=== PATIENT | female | born 1975 | race Caucasian/White ===

== ENCOUNTER 2020-03-05 15:09 | Observation (INO) | payer BC, OTHER ==
[~2020-03-05] VITALS: Ht 157.5 cm; Wt 87.9 kg
--- NOTE | 2020-03-05 15:23 | NUR ---
PATIENT AMBULATORY TO ROOM FROM TRIAGE
[2020-03-05] MEDS ORDERED: SODIUM CHLORIDE FLUSH 10ML SYR IVF ONE (15:30)
[2020-03-05 15:47] LABS: ALANINE AMINOTRANSFERASE 16 U/L (12-78); ALBUMIN 3.7 g/dL (3.4-5.0); ANION GAP 4 mmol/L (5-15); CALCIUM 8.9 mg/dL (8.5-10.1); CHLORIDE 112 mmol/L (98-107)
[2020-03-05] MEDS ORDERED: KETOROLAC 30 MG/1 ML ONE (15:49)
[2020-03-05] MEDS ORDERED: NITROGLYCERIN SINGLE TAB 0.4 MG SL ONE (15:49)
[2020-03-05] MEDS ORDERED: ASPIRIN 81 MG TABLET CHEW ONE (15:50)
[2020-03-05 15:52] LABS: ALKALINE PHOSPHATASE 63 U/L (45-117); BASOPHILS % (AUTO) 1 % (0-1); BILIRUBIN,TOTAL 0.2 mg/dL (0.2-1.0); CREATININE 0.78 mg/dL (0.55-1.02); EOSINOPHILS % (AUTO) 2 % (1-7); LYMPHOCYTES % (AUTO) 25 % (22-44); MEAN CORPUSCULAR HEMOGLOBIN 27.4 pg (27.0-34.8); MEAN PLATELET VOLUME 8.4 fL (7.4-10.4); MONOCYTES % (AUTO) 6 % (2-9); NEUTROPHILS % (AUTO) 66 % (42-75); PLATELET COUNT 339 x10^3/uL (130-400); RED BLOOD COUNT 4.78 x10^6/uL (3.82-5.3); RED CELL DISTRIBUTION WIDTH 14.2 % (9.6-15.2); TOTAL PROTEIN 7.5 g/dL (6.4-8.2); TROPONIN I < 0.015 ng/mL (0.000-0.045)
[2020-03-05] MEDS ORDERED: ASPIRIN 81 MG TABLET CHEW PO ONE (16:00)
[2020-03-05] MEDS ORDERED: NITROGLYCERIN SINGLE TAB 0.4 MG SL PRN (16:00)
[2020-03-05] MEDS ORDERED: KETOROLAC 30 MG/1 ML IVPush ONE (16:00)
--- NOTE | 2020-03-05 16:00 | NUR ---
THIS IS A 44 YO FEMALE COMING IN FOR LEFT SIDED CHEST PAIN RADIATING DOWN LEFT ARM AND INTO LEFT SCAPULA X2 DAYS WITH ASSOCIATED LIGHTHEADEDNESS. DENIES SOB, DENIES N/V. PAIN STARTED OFF INTERMITTENT, BECAME CONSTANT TODAY. 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 PIV PLACED, MEDICATED PER EMAR, TOLERATED WELL. CALL LIGHT IN REACH
[2020-03-05 16:06] LABS: MD NO
--- NOTE | 2020-03-05 16:19 | NUR ---
CALL PLACED TO RADIOLOGY, ONUR IN RADIOLOGY STATES SHE WILL COME TAKE CXR IF NOT ALREADY DONE IT SHOWS IT IS STILL LOGGED AND NOT COMPLETED
--- NOTE | 2020-03-05 17:30 | NUR ---
PATIENT SLEEPING, RESPIRATIONS EVEN AND UNLABORED, VSS, NADN
[2020-03-05] MEDS ORDERED: OMNIPAQUE 350 MG/ML, 75ML BOTTLE ONE (18:27)
--- NOTE | 2020-03-05 18:30 | NUR ---
PATIENT BACK FROM CTA
--- NOTE | 2020-03-05 19:22 | NUR ---
PATIENT RESTING ON GURNEY, RESPIRATIONS EVEN AND UNLABORED. VSS, NADN, CALL LIGHT IN REACH. PATIENT TO BE ADMITTED
[2020-03-05] MEDS ORDERED: ACETAMINOPHEN 325 MG TABLET PO PRN (19:30)
[2020-03-05] MEDS ORDERED: HYDROcodone/APAP 5/325 TABLET PO PRN (19:30)
[2020-03-05] MEDS ORDERED: ZOLPIDEM 5MG TABLET PO PRN (19:30)
[2020-03-05] MEDS ORDERED: DOCUSATE 100 MG CAPSULE PO PRN (19:30)
[2020-03-05] MEDS ORDERED: LACTATED RINGERS 1,000 ML IV SCH (19:30)
[2020-03-05] MEDS ORDERED: ONDANSETRON 2MG/ML, 2ML IVPush PRN (19:30)
[2020-03-05] MEDS ORDERED: BISACODYL 10 MG SUPP PR PRN (19:30)
[2020-03-05] MEDS ORDERED: morphine SULFATE 10 MG/ML, 1ML IVPush PRN (19:30)
[2020-03-05] MEDS ORDERED: ENALAPRILAT 1.25 MG/ML, 2ML IVPush PRN (19:30)
[2020-03-05] MEDS ORDERED: GUAIFENESIN/DM 200-20MG, 10ML UDC PO PRN (19:30)
[2020-03-05] MEDS ORDERED: NITROGLYCERIN 0.4 MG/SPRAY SL PRN (19:30)
[2020-03-05] MEDS ORDERED: ALBUTEROL HFA 90 MCG/SPRAY INH PRN (19:30)
[2020-03-05] MEDS ORDERED: METHOCARBAMOL 500 MG TABLET PO PRN (19:30)
[2020-03-05] MEDS ORDERED: HYDROcodone/APAP 5/325 TABLET ONE (19:46)
--- NOTE | 2020-03-05 19:48 | NUR ---
PATIENT MEDICATED PER EMAR FOR RECURRENT CHEST PAIN. TOLERATED WELL.
--- NOTE | 2020-03-05 20:10 | NUR ---
REPORT GIVEN TO HARESH MAGANA. PLAN OF CARE DISCUSSED. HARESH MARTINEZ STATES ROOM IS BEING CLEANED.
[2020-03-05] MEDS ORDERED: ERGO500018 PO (20:51)
[2020-03-05] MEDS ORDERED: ERGO500017 PO (20:51)
[2020-03-05] MEDS ORDERED: HYDR-3342 PO (20:51)
[2020-03-05] MEDS ORDERED: TRAM50TA2 PO (20:52)
[2020-03-05] MEDS ORDERED: CARV12.52 PO (20:52)
[2020-03-05] MEDS ORDERED: LEVO137T3 PO (20:52)
[2020-03-05] MEDS ORDERED: ALBU18HF INH (20:53)
[2020-03-05] MEDS ORDERED: DOCU240C53 PO (20:53)
[2020-03-05] MEDS ORDERED: ONDA4TAB7 PO (20:53)
[2020-03-05] MEDS ORDERED: METF500T17 PO (20:53)
[2020-03-05] MEDS ORDERED: ENOXAPARIN 40 MG/0.4 ML SQ SCH (21:00)
[2020-03-05] MEDS ORDERED: metFORMIN XR 500 MG TAB.ER.24H PO SCH (21:00)
--- NOTE | 2020-03-05 21:00 | NUR ---
ROOM UPSTAIRS IS CLEAN, PATIENT IS READY TO BE TRANSPORTED AT THIS TIME
[2020-03-05 21:48] VITALS: BP 145/91
[2020-03-05] MEDS: NITROGLYCERIN 0.4 MG BOTTLE (25 TABS) SL PRN ×2 (21:48→21:57)
[2020-03-05] MEDS: FAMOTIDINE 20 MG TABLET PO SCH (21:52)
[2020-03-05 21:55] VITALS: BP 124/77
[2020-03-05 22:03] VITALS: BP 122/78
[2020-03-05 22:18] VITALS: BP 144/83
[2020-03-05 23:38] LABS: TROPONIN I < 0.015 ng/mL (0.000-0.045)
[2020-03-06 01:41] VITALS: BP 117/82
[2020-03-06 05:36] LABS: CHLORIDE 112 mmol/L (98-107)
[2020-03-06 05:42] LABS: BASOPHILS % (AUTO) 1 % (0-1); EOSINOPHILS % (AUTO) 3 % (1-7); LYMPHOCYTES % (AUTO) 41 % (22-44); MEAN CORPUSCULAR HEMOGLOBIN 27.4 pg (27.0-34.8); MEAN PLATELET VOLUME 8.4 fL (7.4-10.4); MONOCYTES % (AUTO) 7 % (2-9); NEUTROPHILS % (AUTO) 48 % (42-75); PLATELET COUNT 284 x10^3/uL (130-400); RED BLOOD COUNT 4.28 x10^6/uL (3.82-5.3); RED CELL DISTRIBUTION WIDTH 14.6 % (9.6-15.2)
[2020-03-06 05:53] LABS: ANION GAP 8 mmol/L (5-15); CALCIUM 8.4 mg/dL (8.5-10.1); CREATININE 0.56 mg/dL (0.55-1.02); TROPONIN I < 0.015 ng/mL (0.000-0.045)
[2020-03-06] MEDS ORDERED: CARVEDILOL 12.5 MG TABLET PO SCH (06:00)
[2020-03-06] MEDS ORDERED: LEVOTHYROXINE 137 MCG TABLET PO SCH (06:00)
[2020-03-06 06:07] LABS: MD NO
[2020-03-06 06:15] VITALS: BP 124/77
[2020-03-06] MEDS: NITROGLYCERIN 0.4 MG BOTTLE (25 TABS) SL PRN (06:15)
[2020-03-06 06:22] VITALS: BP 114/73
[2020-03-06 08:05] VITALS: BP 130/84
[2020-03-06] MEDS ORDERED: REGADENOSON 0.4 MG/5 ML SYRINGE ONE (09:00)
[2020-03-06] MEDS: FAMOTIDINE 20 MG TABLET PO SCH ×2 (09:00→11:49)
[2020-03-06] MEDS: CHOLECALCIFEROL 1,000 UNIT TABLET PO SCH ×2 (09:00→11:49)
[2020-03-06] MEDS ORDERED: FAMOTIDINE 40 MG TABLET ONE (11:46)
[2020-03-06 12:52] LABS: FREE T4 (FREE THYROXINE) 1.58 ng/dL (0.76-1.46)
[2020-03-06 13:09] VITALS: BP 122/71
[2020-03-06] MEDS ORDERED: ATEN50TA41 PO (14:44)
[2020-03-06] MEDS ORDERED: LEVO100T PO (14:44)
== END 2020-03-06 16:50 | disposition home or self-care (01) ==
LOC: ED 18:46 → INTOOBSV 18:52 → EDIP 18:52 → ED 19:28 → 5SO 20:23 → DCLOUNGE 03-06 16:30
PROVIDERS: ADMIT Internal Medicine; ATTEND Hospitalist
DX: R07.89 Other chest pain (principal); I10 Essential (primary) hypertension; E11.9 Type 2 diabetes mellitus without complications; J45.909 Unspecified asthma, uncomplicated; D72.829 Elevated white blood cell count, unspecified; E87.8 Other disorders of electrolyte and fluid balance, not elsewhere classified; E89.0 Postprocedural hypothyroidism; E66.9 Obesity, unspecified; K59.09 Other constipation; Z68.36 Body mass index [BMI] 36.0-36.9, adult; Z85.850 Personal history of malignant neoplasm of thyroid; Z88.0 Allergy status to penicillin; Z79.899 Other long term (current) drug therapy
CPT/HCPCS: 36415; 71045; 71275; 78452; 80048; 80053; 83036; 83735; 84100; 84145; 84439; 84443; 84481; 84484; 85025; 85379; 93005; 93017; 96361; 96372; 96374; 99285; A9502; C9898; G0378; J1650; J1885; J2785; J7120; Q9967; 96376; 99291

== ENCOUNTER → 2020-07-13 | Outpatient (CLI) | payer OTHER ==
[~2020-07-13] MED LIST: ALBU18HF INH; ATEN50TA41 PO; CARV12.52 PO; DOCU240C53 PO; ERGO500017 PO; ERGO500018 PO; HYDR-3342 PO; LEVO100T PO; LEVO137T3 PO; METF500T17 PO; ONDA4TAB7 PO; TRAM50TA2 PO
== END | disposition home or self-care (01) ==
LOC: LAB 11:59
PROVIDERS: ATTEND Surgery
DX: E03.9 Hypothyroidism, unspecified (principal)
CPT/HCPCS: 36415; 84443

== ENCOUNTER → 2020-10-27 | Outpatient (CLI) | payer OTHER ==
[~2020-10-27] MED LIST changes: +ERGO1250 PO; -ERGO500018 PO; +OMNIPAQUE 350 MG/ML, 100ML BOTTLE ONE
== END | disposition home or self-care (01) ==
LOC: CFH 11:30
PROVIDERS: ATTEND Physician Assistant Medical
DX: N85.2 Hypertrophy of uterus (principal); Z90.49 Acquired absence of other specified parts of digestive tract
CPT/HCPCS: 74177; Q9967

== ENCOUNTER 2020-11-09 15:57 | Emergency (ER) | payer OTHER ==
[~2020-11-09] VITALS: Ht 154.9 cm; Wt 91.5 kg
[~2020-11-09 15:57] MED LIST changes: -OMNIPAQUE 350 MG/ML, 100ML BOTTLE ONE
--- NOTE | 2020-11-09 17:05 | NUR ---
PT UP TO RESTROOM, SENT WITH A URINE COLLECTION CUP.
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
--- NOTE | 2020-11-09 17:20 | NUR ---
PROVIDER AT BEDSIDE TO DO EVALUATION.
[2020-11-09] MEDS ORDERED: OXYcodone/APAP 5/325MG TABLET ONE (18:00)
[2020-11-09] MEDS ORDERED: OXYcodone/APAP 5/325MG TABLET PO ONE (18:00)
--- NOTE | 2020-11-09 18:07 | NUR ---
XRAY AT BEDSIDE FOR EXAM.
--- NOTE | 2020-11-09 18:42 | NUR ---
PT STATES PAIN MEDS HELPED SIGNIFICANTLY. PT ALSO NOTED NECK ON LEFT FEEL LIKE A LUMP. PT RESTING IN GURNEY, VSS, BEDRAILS UP X2 CALL REMOTE WITHIN REACH.
--- NOTE | 2020-11-09 18:49 | NUR ---
REPORT FROM KIM HUTSON.
--- NOTE | 2020-11-09 18:59 | NUR ---
REPORT GIVEN TO DMITRIY RN TO ASSUME CARE.
[2020-11-09 20:03] VITALS: BP 134/74
== END 2020-11-09 20:06 | disposition home or self-care (01) ==
LOC: ED 20:00
DX: S16.1XXA Strain of muscle, fascia and tendon at neck level, initial encounter (principal); S29.012A Strain of muscle and tendon of back wall of thorax, initial encounter; I10 Essential (primary) hypertension; E11.9 Type 2 diabetes mellitus without complications; V49.49XA Driver injured in collision with other motor vehicles in traffic accident, initial encounter; Y93.89 Activity, other specified; Y92.410 Unspecified street and highway as the place of occurrence of the external cause; Y99.8 Other external cause status
CPT/HCPCS: 71045; 72125; 72128; 82962; 99285

== ENCOUNTER → 2020-12-22 | Outpatient (CLI) | payer OTHER | END | disposition home or self-care (01) | LOC: CFH 07:12 | PROVIDERS: ATTEND Physician Assistant Medical | DX: N63.24 Unspecified lump in the left breast, lower inner quadrant (principal); N62 Hypertrophy of breast | CPT/HCPCS: 76642; 77062; 77066; G0279 ==

== ENCOUNTER 2021-01-04 09:03 | Day surgery (SDC) | payer OTHER ==
[~2021-01-04] VITALS: Ht 154.9 cm; Wt 90.7 kg
[~2021-01-04 09:03] MED LIST changes: +ACETAMINOPHEN 325 MG TABLET PO PRN; +BUPIVACAINE/PF 0.25% ONE; +EPHEDRINE 50 MG/ML, 1ML IVPush PRN; +EPINEPHRINE 1 MG/ML, 1ML ONE; +GENTAMICIN 80 MG/2 ML ONE; +HYDROmorphone 1 MG/ML, 1ML INJ IVPush PRN; +LABETALOL 5MG/ML, 20ML IV PRN; +LIDOCAINE/PF 1%, 30ML ONE; +ONDANSETRON 2MG/ML, 2ML IVPush PRN; +OXYcodone 5 MG/5 ML ORAL.SOL UDC PO PRN; +PLEASE ENTER HEIGHT AND WEIGHT MC SCH; +PROMETHAZINE 25 MG/ML, 1ML IVPush PRN; +VANCOMYCIN 500 MG ONE; +hydrALAzine 20 MG/ML, 1ML IV PRN
[2021-01-04 09:49] VITALS: BP 131/91
[2021-01-04] MEDS ORDERED: LACTATED RINGERS 1,000 ML IV SCH (10:00)
[2021-01-04] MEDS ORDERED: CHLORHEXIDINE 15 ML UDC PO ONE (10:00)
[2021-01-04] MEDS ORDERED: SEMA0.25 SQ (10:01)
[2021-01-04] MEDS ORDERED: THYR15TA PO (10:01)
[2021-01-04] MEDS ORDERED: ATEN25TA PO (10:06)
[2021-01-04] MEDS ORDERED: CHLORHEXIDINE 15 ML UDC ONE (10:09)
[2021-01-04] MEDS ORDERED: MIDAZOLAM 1 MG/ML, 2ML ONE (11:19)
[2021-01-04] MEDS ORDERED: FENTANYL PF 250 MCG/5ML ONE (11:19)
[2021-01-04] MEDS ORDERED: SODIUM CHLORIDE 0.9% PF 10ML ONE (12:11)
[2021-01-04] MEDS ORDERED: EPHEDRINE 50 MG/ML, 1ML ONE ×2 (12:11→13:44)
[2021-01-04] MEDS ORDERED: LIDOCAINE-MPF 2% ,5ML ONE (12:11)
[2021-01-04] MEDS ORDERED: KETOROLAC 30 MG/1 ML ONE (12:11)
[2021-01-04] MEDS ORDERED: FLUORESCEIN SODIUM 500 MG/5 ML ONE (13:44)
[2021-01-04] MEDS ORDERED: FUROSEMIDE 20 MG/2 ML ONE (13:44)
[2021-01-04] MEDS ORDERED: CEFAZOLIN 1,000 MG ONE (14:11)
[2021-01-04] MEDS ORDERED: PROPOFOL 10 MG/ML, 20ML ONE (14:11)
[2021-01-04] MEDS ORDERED: DEXAMETHASONE 4 MG/ML, 1ML ONE (14:11)
[2021-01-04] MEDS ORDERED: ROCURONIUM 10MG/ML,5ML ONE (14:11)
[2021-01-04] MEDS ORDERED: SUCCINYLCHOLINE 20 MG/ML, 10ML ONE (14:11)
[2021-01-04] MEDS ORDERED: NEOSTIGMINE 1 MG/ML, 10ML ONE (14:11)
[2021-01-04] MEDS ORDERED: ONDANSETRON 2MG/ML, 2ML ONE (14:11)
[2021-01-04] MEDS ORDERED: GLYCOPYRROLATE 0.2MG/1ML, 5ML ONE (14:11)
[2021-01-04] MEDS: FENTANYL PF 100 MCG/2ML IV PRN ×2 (14:29→14:40)
[2021-01-04] MEDS ORDERED: FENTANYL PF 100 MCG/2ML ONE (14:29)
[2021-01-04] MEDS ORDERED: OXYcodone 5 MG/5 ML ORAL.SOL UDC ONE (14:29)
[2021-01-04] MEDS ORDERED: HYDROmorphone 2 MG/ML, 1ML ONE (14:49)
== END 2021-01-04 18:20 | disposition home or self-care (01) ==
LOC: OUT 09:03
PROVIDERS: ATTEND Obstetrics & Gynecology Female Pelvic Medicine and Reconstructive Surgery
DX: N39.3 Stress incontinence (female) (male) (principal); D25.9 Leiomyoma of uterus, unspecified; R10.2 Pelvic and perineal pain; N81.11 Cystocele, midline; N92.6 Irregular menstruation, unspecified; N81.89 Other female genital prolapse; E11.9 Type 2 diabetes mellitus without complications; J45.909 Unspecified asthma, uncomplicated; Z88.1 Allergy status to other antibiotic agents; Z88.0 Allergy status to penicillin; Z98.890 Other specified postprocedural states; Z98.84 Bariatric surgery status; Z79.899 Other long term (current) drug therapy
CPT/HCPCS: 57265; 57288; 58554; 81025; 82962; 88307; C1771; J0330; J0690; J1100; J1170; J1580; J1885; J1940; J2250; J2405; J2704; J2710; J3010; J3370; J7120; J0171

== ENCOUNTER 2021-01-05 02:26 | Emergency (ER) | payer OTHER ==
[~2021-01-05] VITALS: Ht 160 cm; Wt 90.0 kg
[~2021-01-05 02:26] MED LIST changes: -ACETAMINOPHEN 325 MG TABLET PO PRN; +ATEN25TA PO; -BUPIVACAINE/PF 0.25% ONE; -EPHEDRINE 50 MG/ML, 1ML IVPush PRN; -EPINEPHRINE 1 MG/ML, 1ML ONE; -GENTAMICIN 80 MG/2 ML ONE; -HYDROmorphone 1 MG/ML, 1ML INJ IVPush PRN; -LABETALOL 5MG/ML, 20ML IV PRN; -LIDOCAINE/PF 1%, 30ML ONE; -ONDANSETRON 2MG/ML, 2ML IVPush PRN; -OXYcodone 5 MG/5 ML ORAL.SOL UDC PO PRN; -PLEASE ENTER HEIGHT AND WEIGHT MC SCH; -PROMETHAZINE 25 MG/ML, 1ML IVPush PRN; +SEMA0.25 SQ; +THYR15TA PO; -VANCOMYCIN 500 MG ONE; -hydrALAzine 20 MG/ML, 1ML IV PRN
--- NOTE | 2021-01-05 02:42 | NUR ---
PT C/O OF SYNCOPE WHILE SHE WAS ON THE TOILET. PT REPORTS HAVING GENERALIZED WEAKNESS, REPORTS N/V AND LIGHT HEADED AND PAIN PT STATES SHE HAD HYSTERECTOMY 24HRS AGO, BLEEDING THROUGH 2 PADS AN HOUR PT DENIES CP, SOB, AND VAGINAL DISCHARGE ATTACHED TO CARD/SP02/BP MONITORS. VSS. NADN BED IN [facility], RAILS ENGAGED, CALL LIGHT ON LAP. Addendum: 01/05/21 at 4 by [email or web address] [facility] GAVE 600MG IBUPROFEN PT TOOK HYDROCODONE 2 HOURS AGO
[2021-01-05 02:53] LABS: BASOPHILS % (AUTO) 0 % (0-1); EOSINOPHILS % (AUTO) 0 % (1-7); LYMPHOCYTES % (AUTO) 6 % (22-44); MEAN CORPUSCULAR HEMOGLOBIN 27.3 pg (27.0-34.8); MEAN CORPUSCULAR HGB CONC 32.8 g/dL (32.4-35.8); MEAN PLATELET VOLUME 7.8 fL (7.4-10.4); MONOCYTES % (AUTO) 4 % (2-9); NEUTROPHILS % (AUTO) 90 % (42-75); PLATELET COUNT 268 x10^3/uL (130-400); RED BLOOD COUNT 3.55 x10^6/uL (3.82-5.3); RED CELL DISTRIBUTION WIDTH 15.1 % (9.6-15.2)
--- NOTE | 2021-01-05 02:54 | NUR ---
PT STATES SHE MIGHT HAVE HIT HER HEAD, NO BUMP OR SWELLING NOTED. PT REPORTS FEVER/CHILLS.
[2021-01-05] MEDS ORDERED: SODIUM CHLORIDE FLUSH 10ML SYR IVF ONE (03:00)
[2021-01-05] MEDS ORDERED: SODIUM CHLORIDE 0.9% 1,000ML IVBOLUS ONE (03:00)
[2021-01-05 03:01] LABS: ANION GAP 8 mmol/L (5-15); CALCIUM 7.5 mg/dL (8.5-10.1); CHLORIDE 104 mmol/L (98-107); CREATININE 0.74 mg/dL (0.55-1.02)
[2021-01-05] MEDS ORDERED: MORPHINE SULFATE 4 MG/ML, 1ML ONE (04:23)
[2021-01-05] MEDS ORDERED: ONDANSETRON 2MG/ML, 2ML ONE (04:23)
[2021-01-05] MEDS ORDERED: ONDANSETRON 2MG/ML, 2ML IVPush ONE (04:30)
[2021-01-05] MEDS ORDERED: MORPHINE SULFATE 4 MG/ML, 1ML IVPush ONE (04:30)
--- NOTE | 2021-01-05 04:31 | NUR ---
PT OFF UNIT IN IMAGING. PT CONDITION UNCHANGED.
--- NOTE | 2021-01-05 05:53 | NUR ---
TOOK PT ON A ROADTEST. PT TOLERATED WELL. SP02 95% ON RA WITH GOOD WAVE FORM. PT WAS ON 3L NC DUE TO 02 LEVELS GOING DOWN WHILE SLEEPING. WHILE PT IS AWAKE SP02 IS 95% ON RA
[2021-01-05 05:54] VITALS: BP 127/61
--- NOTE | 2021-01-05 06:20 | NUR ---
Patient/Caregiver given discharge instructions and they have confirmed that they understand the instructions. Patient ambulatory with steady gait. NAD, all questions answered appropriately, denies additional needs at this time. No personal belongings left in room after discharge. pt brought to phone to call for safe discharge. pt cathter bag emptied totaling 800ml clear yellow urine.
== END 2021-01-05 06:28 | disposition home or self-care (01) ==
LOC: ED 04:07
DX: R55 Syncope and collapse (principal); K59.00 Constipation, unspecified; D64.9 Anemia, unspecified; R11.2 Nausea with vomiting, unspecified; R42 Dizziness and giddiness; R94.31 Abnormal electrocardiogram [ECG] [EKG]; Z90.710 Acquired absence of both cervix and uterus; E11.9 Type 2 diabetes mellitus without complications; I10 Essential (primary) hypertension
CPT/HCPCS: 36415; 74018; 80048; 85025; 93005; 96361; 96374; 96375; 99285; J2270; J2405; J7030